=== PATIENT | male | born 2000 | race Hispanic/Latino ===

== ENCOUNTER 2023-07-17 06:58 | Emergency (ER) | payer MEDICAID, OTHER ==
[~2023-07-17] VITALS: Ht 165.1 cm; Wt 79.8 kg
[2023-07-17 07:22] LABS: RAPID GROUP A STREP negative (NEGATIVE)
[2023-07-17 07:30] LABS: SARS-CoV-2, RNA, NAAT NEGATIVE SARS CoV-2 (NEGATIVE)
[2023-07-17 07:38] LABS: INFLUENZA TYPE A Negative For Type A (NEGATIVE); INFLUENZA TYPE B Negative For Type B (NEGATIVE)
[2023-07-17 09:01] VITALS: BP 115/71; O2SAT 99
[2023-07-17] MEDS: KETOROLAC 60 MG VIAL (30MG/ML) IM ONE (09:21)
[2023-07-17] MEDS: SOLU-MEDROL 125MG VIAL IM ONE (09:21)
[2023-07-17 09:28] VITALS: PULSE 78; RESP 18
[2023-07-17] MEDS: ALBUTEROL 0.083% 2.5 MG/3 ML INH IH ONE (09:28)
[2023-07-17] MEDS ORDERED: GUAI600T50 PO (09:58)
[2023-07-17] MEDS ORDERED: PRED20TA3 PO (09:58)
[2023-07-17] MEDS ORDERED: AUD IH (09:58)
== END 2023-07-17 10:10 | disposition home or self-care (01) ==
LOC: EDH 06:58
DX: J20.8 Acute bronchitis due to other specified organisms (principal); B97.89 Other viral agents as the cause of diseases classified elsewhere; Z90.89 Acquired absence of other organs; Z20.822 Contact with and (suspected) exposure to COVID-19
CPT/HCPCS: 99284; 71045; 87635; 87880; 87804 ×2; 96372 ×2; 94640; J2930; J1885